=== PATIENT | female | born 1930 | race Caucasian/White ===

== ENCOUNTER 2017-01-17 00:17 | Inpatient (IN) | payer MEDICARE, OTHER ==
[~2017-01-17] VITALS: Ht 154.9 cm; Wt 47.6 kg
[~2017-01-17 00:17] MED LIST: BACLOFEN20 M1 PO; CYMBALTA30 MG PO; HCTZ25 MG PO; K-DUR20 MEQ PO; LYRICA100 MG PO; MIRAPEX0.125 MG PO; MORPHINE SULFAT15 M4 PO; MYCOSTATIN CREA15 GM TOPICAL; NEURONTIN600 MG PO; NEUTRA-PHOS PAC1 PK1 PO; NORVASC5 MG PO; NYAMYC60 GM TP; ROBAXIN-750750 MG PO; THERMOTABS 1 GM1 GM PO; TRAZODONE HCL50 MG PO; ULTRAM50 MG PO; ZANAFLEX2 M1 PO
[2017-01-17 04:38] LABS: BASOPHILS 0.2 % (0-2); EOSINOPHILS 1.5 % (0-7); HEMATOCRIT 34.4 % (36.0-48.0); HEMOGLOBIN 11.6 g/dL (12-16); IMMATURE GRANULOCYTES 0.2 % (0-5); LYMPHOCYTES 24.3 % (15-50); MCH 30.3 pg (26.0-34.0); MCHC 33.7 g/dL (31.0-37.0); MCV 89.8 fL (80.0-100.0); MEAN PLATELET VOLUME 8.8 fL (7.4-10.4); MONOCYTES 9.7 % (2-11); NEUTROPHILS 64.1 % (40-80); RBC 3.83 10x6/uL (4.00-5.40); RDW 12.4 % (11.5-14.5); WBC 5.5 10x3/uL (4.8-10.8)
[2017-01-17 04:46] LABS: PLATELET COUNT 184 10x3/uL (130-400)
[2017-01-17 04:47] LABS: CALC OSMOLALITY 256 mosm/kg (275-300); CALCIUM 8.3 mg/dL (8.5-10.1); CARBON DIOXIDE 28.3 mmol/L (21.0-32.0); CHLORIDE - SERUM 94 mmol/L (98-107); CREATININE - SERUM 0.5 mg/dL (0.6-1.3); GLUCOSE 100 mg/dL (74-106); POTASSIUM - SERUM 4.2 mmol/L (3.5-5.1); SODIUM 127 mmol/L (136-145); UREA NITROGEN 17 mg/dL (7-18); eGFR NON AFRICAN AMERICAN > 90 mL/min (90-120)
[2017-01-17 05:35] LABS: APPEARANCE CLOUDY (CLEAR); BILIRUBIN NEGATIVE (NEGATIVE); COLOR YELLOW (YELLOW); GLUCOSE NEGATIVE (NEGATIVE); KETONE NEGATIVE (NEGATIVE); LEUKOCYTE ESTERASE 2+ (NEGATIVE); NITRITE POSITIVE (NEGATIVE); PROTEIN TRACE mg/dL (NEGATIVE); UROBILINOGEN NORMAL (NORMAL)
[2017-01-17 05:43] LABS: BACTERIA MANY /hpf (NONE SEEN); EPITHELIAL CELLS 0-5 /hpf (0-5); GRANULAR CAST 0-5 /lpf (NONE SEEN); HYALINE CAST RARE /lpf (NONE SEEN); MUCUS <1+ /lpf (NONE SEEN); TRIPLE PHOSPHATE CRYSTALS >50 /hpf (NONE SEEN)
--- NOTE | 2017-01-17 07:30 | NUR ---
PT AOX4 RESP EVEN AND NONLABORED O2 AT 2L/NC PT DENIES NEEDS AT THIS TIME IV TO RIGHT FOREARM PATENT AND INTACT SL. SRX2 BED AT LOWEST SETTING CALL LIGHT WITHIN REACH WILL CONTINUE TO MONITOR
[2017-01-17 08:32] VITALS: BP 114/71
[2017-01-17 09:18] VITALS: BP 125/50; BMI 19.8
[2017-01-17 12:30] VITALS: BP 150/79
[2017-01-17 16:02] VITALS: BP 120/72
[2017-01-17 16:08] VITALS: Ht 154.9 cm; Wt 47.6 kg
--- NOTE | 2017-01-17 19:00 | NUR ---
PATIENT ON RIGHT SIDE. HOB 40 DEGREES. AWAKE, ALERT, AND VERY ANXIOUS. HOLLERING OUT. ASKING FOR TRAZADONE. EXPLAINED TO PATIENT THAT SHE DOES NOT HAVE IT ORDERED. O2 @ 2L VIA NC. IV TO RIGHT FA PATENT WITH NO REDNESS OR SWELLING. 45 DEGREE BRACE TO LLE. TELEMETRY ON. SCD'S ON. SRX2. BED LOW. CALL LIGHT WITHIN REACH.
--- NOTE | 2017-01-17 20:45 | NUR ---
NIGHTTIME MEDS GIVEN. REPOSITIONED PATIENT.
--- NOTE | 2017-01-17 22:30 | NUR ---
NORCO GIVEN FOR PAIN. WILL REASESS.
[2017-01-18] VITALS: BP 135/94
--- NOTE | 2017-01-18 00:30 | NUR ---
BACLOFEN GIVEN FOR MUSCLE SPASMS.
--- NOTE | 2017-01-18 03:20 | NUR ---
CELESTECO GIVEN. WILL REASSESS.
[2017-01-18 04:00] VITALS: BP 144/94
[2017-01-18 05:16] LABS: BASOPHILS 0 % (0-2); EOSINOPHILS 0 % (0-7); HEMATOCRIT 35.6 % (36.0-48.0); HEMOGLOBIN 12.3 g/dL (12-16); IMMATURE GRANULOCYTES 0.3 % (0-5); MCH 30.5 pg (26.0-34.0); MCHC 34.6 g/dL (31.0-37.0); MCV 88.3 fL (80.0-100.0); MONOCYTES 9.9 % (2-11); NEUTROPHILS 78.8 % (40-80); PLATELET COUNT 177 10x3/uL (130-400); RBC 4.03 10x6/uL (4.00-5.40); RDW 12.4 % (11.5-14.5)
[2017-01-18 05:36] LABS: ALBUMIN 3.2 g/dL (3.4-5.0); ALKALINE PHOSPHATASE 71 U/L (46-116); ALT (SGPT) 20 U/L (10-68); CALC OSMOLALITY 258 mosm/kg (275-300); CALCIUM 8.1 mg/dL (8.5-10.1); CARBON DIOXIDE 23.5 mmol/L (21.0-32.0); CHLORIDE - SERUM 94 mmol/L (98-107); CREATININE - SERUM 0.4 mg/dL (0.6-1.3); GLUCOSE 133 mg/dL (74-106); POTASSIUM - SERUM 4.5 mmol/L (3.5-5.1); PROTEIN - SERUM 5.7 g/dL (6.4-8.2); SODIUM 128 mmol/L (136-145); UREA NITROGEN 13 mg/dL (7-18); eGFR NON AFRICAN AMERICAN > 90 mL/min (90-120)
[2017-01-18 05:47] LABS: WBC 7.1 10x3/uL (4.8-10.8)
--- NOTE | 2017-01-18 07:30 | NUR ---
PT AOX4 RESP EVEN AND NONLABORED 02 AT 2L NC PT DENIES NEEDS AT THIS TIME SRX2 BED IN LOWEST SETTING CALL LIGHT WITHIN REACH WILL CONTINUE TO MONITOR
[2017-01-18 08:23] VITALS: BP 149/99
[2017-01-18 13:03] VITALS: BP 182/106
--- NOTE | 2017-01-18 13:39 | NUR ---
Patient Name: JAVIER LOONEY Admission Status: ER Accout number: [id number] Admission Date: 01-17-2017 : 1930 Admission Diagnosis: Attending: RITA Current LOS: 1 Anticipated DC Date: 01-23-2017 Planned Disposition: Nursing Facility ANUJ Cert Primary Insurance: MEDICARE A & B Discharge Planning Comments: CM SPOKE WITH MARISOL AT [facility] FOR INFORMATION REGARDING PATIENT. MARISOL STATED SHE IS IN A PRIVATE ROOM AT THE LONG TERM. PATIENT WAS A TWO MAN ASSIST BEFORE THIS HOSPITAL VISIT. PATIENTS PCP IS DR. VINCENT AND PHARMACY IS IN HOUSE AT [facility]. PATIENTS FAMILY LIVES OUT OF TOWN - SHE HAS THREE CHILDREN LISTED BELOW. CM WILL CONTINUE TO FOLLOW PATIENT WITH D/C NEEDS AND PLANS. PCP DR. VINCENT AT [facility] IN IN HOUSE AT [facility] JESSICA (SON) [phone] CELL [phone] MOLLY [phone] CELL [phone] BLUE [phone] Reinforcing Metal Worker: Claribel Valente How many steps to enter\exit or inside your home? 0 0 * PCP DR. DURAN 0 * Pharmacy IN HOUSE AT [facility] 0 * Preadmission Environment [employer] [facility] 0 * ADLs Total Dependent 0 * Equipment Hospital Bed Criss Lift Wheelchair 0 * Other Equipment FACILITY HAS NEEDED EQUIPMENT 0 * List name and contact numbers for known caregivers / representatives who currently or will assist patient after discharge: JESSICA (SON) [phone] CELL [phone] MOLLY (DAUGHTER) [phone] CELL [phone] BLUE (DAUGHTER) [phone] 0 * Community resources currently utilized None 0 * Additional services required to return to the preadmission environment? Yes 0 * Can the patient safely return to the preadmission environment? Yes 0 * Has this patient been hospitalized within the prior 30 days at any hospital? No 0 Grand Total: 0
[2017-01-18 17:18] VITALS: BP 131/75
[2017-01-18 20:00] VITALS: BP 111/66
[2017-01-19] VITALS: BP 128/72
--- NOTE | 2017-01-19 03:07 | NUR ---
REC'D. IN BED CALLING OUT NAME OF DIFFERENT STAFF MEMBERS.WHEN ASKED HOW CAN I HELP YOU STATES I NEED DILAN.CONSTANTLY MAIN ENTREE COOK AND CASHIER LITE REQUESTING TO SPEAK TO DIFFERENT STAFF MEMBERSFOLEY PATENT AND DRAINING MELODY COLORED URINE. WILL CONTINUE TO MONITOR FOR ANY CHGES AND FOLLOW CURRENT PLAN OF CARE,
[2017-01-19 04:00] VITALS: BP 114/62
--- NOTE | 2017-01-19 05:30 | NUR ---
RN NOTE: PT LYING IN SUPINE POSITION WITH EYES CLOSED. O2 IN USE VIA NC AT 2L WITH UNLABORED BREATHING. WILL CONTIUE TO MONITOR FOR NEEDS.
[2017-01-19 06:08] LABS: BASOPHILS 0 % (0-2); EOSINOPHILS 0 % (0-7); HEMATOCRIT 33.5 % (36.0-48.0); HEMOGLOBIN 11.5 g/dL (12-16); IMMATURE GRANULOCYTES 0.1 % (0-5); LYMPHOCYTES 11.6 % (15-50); MCH 30.1 pg (26.0-34.0); MCHC 34.3 g/dL (31.0-37.0); MCV 87.7 fL (80.0-100.0); MEAN PLATELET VOLUME 9.3 fL (7.4-10.4); NEUTROPHILS 76.3 % (40-80); PLATELET COUNT 198 10x3/uL (130-400); RBC 3.82 10x6/uL (4.00-5.40); RDW 12.7 % (11.5-14.5); WBC 8.7 10x3/uL (4.8-10.8)
[2017-01-19 06:31] LABS: ALBUMIN 3.1 g/dL (3.4-5.0); ALKALINE PHOSPHATASE 72 U/L (46-116); BILIRUBIN - TOTAL 1.02 mg/dL (0.2-1.3); CALCIUM 8.2 mg/dL (8.5-10.1); CARBON DIOXIDE 20.9 mmol/L (21.0-32.0); CHLORIDE - SERUM 92 mmol/L (98-107); CREATININE - SERUM 0.5 mg/dL (0.6-1.3); GLUCOSE 113 mg/dL (74-106); POTASSIUM - SERUM 3.9 mmol/L (3.5-5.1); PROTEIN - SERUM 5.9 g/dL (6.4-8.2); SODIUM 124 mmol/L (136-145); eGFR NON AFRICAN AMERICAN > 90 mL/min (90-120)
[2017-01-19 06:32] LABS: CALC OSMOLALITY 252 mosm/kg (275-300); UREA NITROGEN 17 mg/dL (7-18)
[2017-01-19 06:33] LABS: ALT (SGPT) 58 U/L (10-68)
--- NOTE | 2017-01-19 07:30 | NUR ---
PT AOX4 RESP EVEN AND NONLABORED IV TO RIGHT FOREARM PATENT AND INTACT PT DENIES NEEDS AT THIS TIME SRX2 BED AT LOWEST SETTING CALL LIGHT WITHIN REACH WILL CONTINUE TO MONITOR
[2017-01-19 08:31] VITALS: BP 144/90
--- NOTE | 2017-01-19 15:19 | NUR ---
NUTRITION MONITORING & EVAL CHART REVIEWED, PT REMAINS ON CLEAR LIQUID DIET. RECOMMEND ADVANCING DIET WHEN MEDICALLY FEASIBLE. RD FOLLOWING
[2017-01-19 16:37] VITALS: BP 128/70
[2017-01-19 20:00] VITALS: BP 133/75
[2017-01-20] VITALS: BP 142/77
--- NOTE | 2017-01-20 03:18 | NUR ---
RN NOTE: PT LYING IN SUPINE POSITION WITH EYES CLOSED. IV IN LEFT FA SALINE LOCKED. O2 IN USE VIA NC AT 2L. SUPRA PUBIC CATHETER DRAINING TO GRAVITY WITH YELLOW URINE IN COLLECTION BAG. WILL CONTINUE TO MONITOR FOR NEEDS.
[2017-01-20 04:00] VITALS: BP 150/79
[2017-01-20 05:10] LABS: BASOPHILS 0 % (0-2); EOSINOPHILS 0 % (0-7); HEMATOCRIT 32.9 % (36.0-48.0); HEMOGLOBIN 11.7 g/dL (12-16); IMMATURE GRANULOCYTES 0.1 % (0-5); LYMPHOCYTES 8.2 % (15-50); MCHC 35.6 g/dL (31.0-37.0); MEAN PLATELET VOLUME 9.4 fL (7.4-10.4); MONOCYTES 11.1 % (2-11); NEUTROPHILS 80.6 % (40-80); PLATELET COUNT 177 10x3/uL (130-400); RBC 3.78 10x6/uL (4.00-5.40); RDW 12.7 % (11.5-14.5); WBC 8.5 10x3/uL (4.8-10.8)
[2017-01-20 05:39] LABS: ALBUMIN 3.1 g/dL (3.4-5.0); ALKALINE PHOSPHATASE 68 U/L (46-116); ALT (SGPT) 54 U/L (10-68); CALC OSMOLALITY 255 mosm/kg (275-300); CALCIUM 7.8 mg/dL (8.5-10.1); CARBON DIOXIDE 20.9 mmol/L (21.0-32.0); CHLORIDE - SERUM 91 mmol/L (98-107); CREATININE - SERUM 0.5 mg/dL (0.6-1.3); GLUCOSE 128 mg/dL (74-106); POTASSIUM - SERUM 3.4 mmol/L (3.5-5.1); PROTEIN - SERUM 5.5 g/dL (6.4-8.2); SODIUM 126 mmol/L (136-145); UREA NITROGEN 16 mg/dL (7-18); eGFR NON AFRICAN AMERICAN > 90 mL/min (90-120)
[2017-01-20 08:39] VITALS: BP 166/91
--- NOTE | 2017-01-20 09:10 | NUR ---
ALERT AND ORIENTED, TAKING MEDICATIONS ONE BY ONE WITH SMALL SIPS OF WATER, DENIES NEEDS, TALKING, DENIES DISCOMFORT, ASSESSMENT COMPLETE, NEEDS TO BE CHANGED STEPPING OUT TO GET SUPPLIES 0920 CALL LIGHT ON, DIFFICULTY BREATHING, RESPIRATORY CALLED FOR BREATHING TREATMENT, REQUEST OF PATIENT 0930 PT NOT RESPONDING VERBALLY, DR RITA SPARKS, TELEMETRY CALLED HR 36 0945 NEELAM KYLE RUBBER GOODS REPAIRER ASSESSED AWAITING DR SALINAS [address] DR SALINAS NOTIFIED FAMILY 1013 [address]ODGERS NOTIFIED REF #[id number] CALLED MOLLY NICK (DAUGHTER) SHE AUTHORIZED [facility] TO RELEASE PT TO [address] [facility] AND [employer] DEPLOYMENT CONSULTANT NOTIFIED [address] [facility] PICKED UP PT
--- NOTE | 2017-01-20 10:13 | NUR ---
NOTIFIED VISHAL, THEY TOLD ME TO LEAVE A MESSAGE AND THEY WILL RETURN MY CALL
== END 2017-01-20 12:33 | DRG 543 ==
LOC: D.ER 00:17 → D.MS 05:16
PROVIDERS: Family Medicine; ADMIT Family Medicine
PROC: 0T2BX0Z Change Drainage Device in Bladder, External Approach (ICD-10-PCS; principal; 2017-01-18)
DX: M84.452A Pathological fracture, left femur, initial encounter for fracture (principal); T84.021A Dislocation of internal left hip prosthesis, initial encounter; E87.1 Hypo-osmolality and hyponatremia; G82.20 Paraplegia, unspecified; T83.518A Infection and inflammatory reaction due to other urinary catheter, initial encounter; R91.8 Other nonspecific abnormal finding of lung field; G20 Parkinson's disease; Z66 Do not resuscitate; G89.29 Other chronic pain; G40.909 Epilepsy, unspecified, not intractable, without status epilepticus; R13.11 Dysphagia, oral phase